=== PATIENT | male | born 1985 | race Caucasian/White ===

== ENCOUNTER 2019-06-12 18:15 | Emergency (ER) | payer OTHER, SELFPAY ==
[2019-06-12 18:25] VITALS: BP 147/86; PULSE 107; RESP 20; TEMP 36.3; O2SAT 99
--- NOTE | 2019-06-12 18:55 | ED.GENADULT ---
HPI - General Adult General Chief complaint: Nausea/Vomiting/Diarrhea Stated complaint: vomiting Time Seen by Provider: 06/12/19 18:20 Source: patient Mode of arrival: ambulatory Limitations: no limitations History of Present Illness HPI narrative: Patient is a 34-year-old male who presents to emergency department for evaluation of nausea vomiting diarrhea that is been present now for the last 6 days patient notes a few episodes of each per day with cramping of the abdomen has not taken anything for his symptoms has been able to tolerate fluid intake denies rectal bleeding or melena Related Data Home Medications Medication Instructions Recorded Confirmed topiramate PO BID 06/12/19 Allergies Allergy/AdvReac Type Severity Reaction Status Date / Time codeine Allergy Mild Unknown Verified 06/12/19 18:31 Review of Systems Review of Systems: All systems reviewed & are unremarkable except as noted in HPI and below PMFSH Past Medical History Medical History Anxiety Depression Hypercholesteremia PTSD (post-traumatic stress disorder) Surgical History Surgical History History of cholecystectomy Hx of eye surgery Social History Social History Smoking packs per day: 1 Smoking cigarettes per day: 20.0 Smoking status: Current every day smoker Gender identity (if verbalized by the patient): Male Exam Narrative: Exam Narrative: GENERAL: Well-appearing, well-nourished, and in no acute distress. HEAD: Normocephalic, atraumatic. EYES: PERRLA and EOMI. ENT: Nares clear, no rhinorrhea or epistaxis. Mucous membranes moist. CHEST: Clear to auscultation. No respiratory distress. No wheezes rales or rhonchi HEART: Regular rate and rhythm. No murmur heard. Normal peripheral pulses. ABDOMEN: Soft, nontender, nondistended EXTREMITIES: Normal range of motion. No edema. SKIN: Warm, dry, no rash. NEURO: No focal deficits. Alert and oriented x3. PSYCH: Normal mood and affect. Course Course Emergency Course: Patient in the room in no distress aware of case findings treatment plan and diagnosis agreeing to follow-up as directed Vital Signs Vital signs: Vital Signs Temperature 97.4 F L 06/12/19 18:25 Pulse Rate 107 H 06/12/19 18:25 Respiratory Rate 20 06/12/19 18:25 Blood Pressure 147/86 H 06/12/19 18:25 Pulse Oximetry 99 06/12/19 18:25 Temperature 97.4 F L 06/12/19 18:25 Pulse Rate 107 H 06/12/19 18:25 Respiratory Rate 20 06/12/19 18:25 Blood Pressure 147/86 H 06/12/19 18:25 Pulse Oximetry 99 06/12/19 18:25 Medical Decision Making MDM Narrative Medical decision making narrative: Patient in the room in no distress aware of case findings treatment plan and diagnosis. Patient provided with reasons to return. Patient agreeing to return. Patient afebrile nontoxic-appearing tolerating p.o. intake Vital Signs Vital Signs: Vital Signs Temperature 97.4 F L 06/12/19 18:25 Pulse Rate 107 H 06/12/19 18:25 Respiratory Rate 20 06/12/19 18:25 Blood Pressure 147/86 H 06/12/19 18:25 Pulse Oximetry 99 06/12/19 18:25 Temperature 97.4 F L 06/12/19 18:25 Pulse Rate 107 H 06/12/19 18:25 Respiratory Rate 20 06/12/19 18:25 Blood Pressure 147/86 H 06/12/19 18:25 Pulse Oximetry 99 06/12/19 18:25 Discharge Plan Discharge Clinical Impression: Nausea & vomiting Patient Disposition: Home, Self-Care Condition: Stable Instructions: Antibiotic Form, Acute Nausea and Vomiting (ED) Additional Instructions: Follow up with your primary care doctor tommorrow to set up for reevaluation in the next 7 days. Go to ER for worsening pain, nausea/vomitting, fever/chills, chest pain, shortness of breath, blood in stools or urine, etc. or any other concerns. Take any prescribed medications as directed
[2019-06-12] MEDS: SODIUM CHLORIDE 0.9% IV 1,000 ML 999 ML IV CONT (19:07)
[2019-06-12] MEDS: FAMOTIDINE 20 MG/2 ML VIAL IV PUSH (19:07)
[2019-06-12] MEDS: ONDANSETRON INJ 4 MG/2 ML VIAL IV PUSH (19:07)
[2019-06-12 19:18] LABS: Basophils Percent Auto 0.4 % (0.2-1.2); Eosinophils Absolute Auto 0.1 K/mm3 (0-0.3); Eosinophils Percent Auto 0.5 % (0-4.4); Hematocrit 44.8 % (42.0-52.0); Hemoglobin 15.7 g/dL (14.0-18.0); Immature Granulocyte Absolute 0.04 K/mm3 (0.00-0.031); Immature Granulocyte Percent A 0.4 % (0-0.5); Lymphocytes Absolute Auto 2.63 K/mm3 (0.9-3.2); Lymphocytes Percent Auto 27.3 % (18.3-44.2); Mean Corpuscular Volume 85.5 fl (80-100); Mean Platelet Volume 9.1 fl (7.4-10.4); Monocytes Absolute Auto 0.7 K/mm3 (0.1-0.6); Monocytes Percent Auto 7.3 % (2.6-8.5); Neutrophils Absolute Auto 6.2 K/mm3 (1.3-6.7); Neutrophils Percent Auto 64.1 % (45.5-73.1); Platelet Count Result 387 k/mm3 (150-375); Red Blood Count 5.24 M/mm3 (4.6-6.20); White Blood Count 9.6 K/mm3 (4.5-10.0)
[2019-06-12 19:32] LABS: Alanine Aminotransferase 57 U/L (4-50); Albumin Level 4.4 g/dL (3.5-5.1); Alkaline Phosphatase 87 U/L (38-126); Aspartate Amino Transferase 34 U/L (17-59); Bilirubin,Total 0.4 mg/dL (0.2-1.3); Blood Urea Nitrogen 12 mg/dL (9-20); Calcium 8.8 mg/dL (8.4-10.2); Carbon Dioxide 24 mmol/L (22-30); Chloride 108 mmol/L (98-107); Estimated CRCL calculation 149 ml/min; Estimated Glomerular Filt Rate > 60; Glucose 103 mg/dL (75-110); Lipase 30 U/L (23-300); Potassium 3.6 mmol/L (3.4-5.0); Sodium 142 mmol/L (137-145)
[2019-06-12 20:01] LABS: Add Urine Microscopic? YES; Appearance Urine Clear (Clear); Bacteria Urine Trace /hpf; Bilirubin Urine Negative (Negative); Blood Urine Negative (Negative); Color Urine Yellow (Yellow); Glucose Urine UA Negative (Negative); Ketones Urine 1+ mg/dL (Negative); Leukocyte Esterase Ur Negative LEU/UL (Negative); Mucus Urine Heavy /lpf; Nitrate Urine Negative (Negative); Protein Urine Negative (Negative); RBC Urine 0-2 /hpf (0-2); Specific Grav Ur 1.025 (1.001-1.035); WBC Urine 0-3 /hpf
[2019-06-12 20:12] LABS: Barbiturate Screen Urine Negative (Negative); Benzodiazepines Screen Urine Negative (Negative)
[2019-06-12 20:18] LABS: Amphetamine Screen Urine Negative (Negative); Cannabinoid Screen Urine Negative (Negative); Cocaine Screen Urine Negative (Negative); Methadone Screen Urine Negative (Negative); Opiate Screen Urine Negative (Negative); Phencyclidine Screen Urine Negative (Negative)
== END 2019-06-12 20:47 | disposition home or self-care (01) ==
PROVIDERS: Emergency Medicine Emergency Medical Services; Emergency Provider Emergency Medicine
DX: R11.2 Nausea with vomiting, unspecified (principal); F41.9 Anxiety disorder, unspecified; F32.9 Major depressive disorder, single episode, unspecified; E78.5 Hyperlipidemia, unspecified; F17.210 Nicotine dependence, cigarettes, uncomplicated
CPT/HCPCS: 36415; 80053; 80307; 81001; 83690; 85025; 96361; 96374; 96375; 99284; J2405; J7030

== ENCOUNTER 2019-12-17 08:40 | Outpatient (CLI) | payer OTHER, SELFPAY ==
--- NOTE | 2019-12-17 08:49 | ECHO_ITS ---
Patient Info Name: Ke Turner Age: 34 years : 1985 Gender: Male Ht: 69 in Wt: 250 lbs BSA: 2.40 m2 HR: 88 bpm BP: 132 / 85 mmHg Heart Rhythm: Sinus Rhythm Technical Quality: Good Exam Date: 12/17/2019 9:16 AM Exam Location: [facility] Patient Status: Outpatient Admit Date: 12/17/2019 Staff Ordering Physician: Char Mike MD [employer] Pilot: Derrick Ruggiero RDCS Attending Provider: Char Mike MD Referring Physician: Cee CHIRINOS; Exam Type: CA echo doppler color flow Study Info Indications R06.02 - Shortness of breath Complete two-dimensional, color flow and Doppler transthoracic echocardiogram is performed. Strain analysis performed. History/Risk Factors Shortness of breath; MAICOL, HTN, chest pain, palpitations. Summary 1. Complete two-dimensional, color flow and Doppler transthoracic echocardiogram is performed. 2. Left ventricular chamber dimension is normal. 3. Left ventricular systolic function is normal, estimated at 60-65%. 4. The left ventricular diastolic function is normal. 5. E/e' 5 is not elevated. 6. Global longitudinal strain is abnormal at -14.8%. 7. Right ventricular systolic function is mildly reduced based on TAPSE 1.5 cm. 8. There is trace tricuspid valve regurgitation. 9. No pulmonary hypertension, estimated pulmonary arterial systolic pressure is 29 mmHg. Left Ventricle E/e' 5 is not elevated. Global longitudinal strain is abnormal at -14.8%. Left ventricular chamber dimension is normal. Left ventricular systolic function is normal, estimated at 60-65%. The left ventricular diastolic function is normal. Right Ventricle Right ventricular systolic function is mildly reduced based on TAPSE 1.5 cm. Right ventricular chamber dimension is not well visualized. Left Atria Left atrial chamber dimension is normal. Right Atria Right atrial chamber dimension is normal. Aortic Valve The aortic valve is trileaflet. There is no aortic valve stenosis. There is no aortic valve regurgitation. Pulmonic Valve There is no pulmonic regurgitation. Mitral Valve There is no mitral valve stenosis. There is no mitral valve regurgitation. Tricuspid Valve There is trace tricuspid valve regurgitation. No pulmonary hypertension, estimated pulmonary arterial systolic pressure is 29 mmHg. Pericardium/Pleural There is no pericardial effusion. Inferior Vena Cava Normal inferior vena cava with >50% collapse upon inspiration consistent with normal right atrial pressure, 5 mmHg. Aorta The aortic root size at the sinus of Valsalva is normal. Left Ventricular Outflow Tract Name Value Normal LVOT 2D LVOT Diameter 2.1 cm LVOT Doppler LVOT Peak Gradient 3 mmHg LVOT Mean Gradient 2 mmHg LVOT VTI 16 cm LVOT VTI/AV VTI Ratio 0.9 LVOT Stroke Volume 56 ml LVOT CO 5.0 l/min LVOT CI 2.1 l/min/m2 Mitral Valve ---
== END 2019-12-17 08:41 | disposition home or self-care (01) ==
LOC: ANHCARD 08:43
PROVIDERS: PCP Nurse Practitioner; Visit Provider Internal Medicine Critical Care Medicine
DX: R06.02 Shortness of breath (principal)
CPT/HCPCS: 93306

== ENCOUNTER 2019-12-31 08:10 | Outpatient (CLI) | payer OTHER, SELFPAY ==
--- NOTE | 2020-02-03 14:17 | WPDHOMESLEEP ---
Sleep Study - Home Unattended Date of Study: 12/31/19 Ordering Provider: Char Mike MD Interpreting Physician: Char Mike MD Home Sleep Study Type: Apnea Link Air Height: 1.75 m Weight: 113.398 kg Body Mass Index: 36.9 Neck Circumference (inches): 16.9 [place]: 8 Reason for Sleep Study Hypersomnia Sleep History Ke Turner is a 34 yo man with loud snoring that bothers others. He has witnessed apneas at night. He has difficulties falling asleep and staying asleep. He constantly has trouble sleep with a cold. He does not wake up gasping for breath at night, does not sweat excessively at night or notices his heart pounding or beating irregularly at night. He occasionally falls asleep during the day, never involuntarily or while driving. He does not fall asleep during physical effort. He does not have loss of muscle tone was strong emotion and does not have daytime difficulties due to excessive sleepiness. Does not feel paralyzed on waking or falling asleep. He denies vivid dreamlike scenes upon awakening or falling asleep. He has never for a to go to sleep. He constantly has nightmares consulate remember his dreams and has racing thoughts at night. He occasionally feels sad or depressed. He constantly has anxiety. He denies muscular tension. He occasionally notices parts of his body jerking, occasionally kicks at night, occasionally has crawling and aching feelings in his legs and leg pain at night. He does not have morning jaw pain, rarely grinds his teeth during sleep. He is not bothered by pain during the day and is not awakened by pain at night. He occasionally wakes up feeling stiff in the morning. He does not have sore achy muscles are pain in the neck and spine in the morning. He has fatigue memory problems insomnia and concentration difficulties. Normal bedtime is 11:00 p.m. taking medications to help him fall asleep. He does not take medications he would stay awake until 2 in the morning. It takes him about 40 minutes to fall asleep. If he wakes at night he watches television, looks at his phone in place video games. He wakes up in the morning at 10:00 a.m. He estimates that he gets 8-10 hours of sleep per night. Weekends are about the same. He does not take naps in the afternoon or evening. Naps are not refreshing. He is drowsy in the morning for 1 hour or longer. Habits: Tobacco 2 packs a day. Caffeine 2 servings a day. No mention of alcohol or recreational drugs. [facility] Past Medical History Medical History (Updated 02/03/20 @ 14:56 by Char Mike MD) Amblyopia Anxiety Depression Hypercholesteremia Hypersomnia Poor sleep hygiene PTSD (post-traumatic stress disorder) Shortness of breath on exertion Tobacco abuse Surgical History Surgical History History of cholecystectomy Hx of eye surgery S/P tonsillectomy right tonsil for abscess, age 8 Social History Social History Smoking packs per day: 1.5 Smoking cigarettes per day: 30.0 Years smoked: 14 Smoking pack-years: 21.00 Smoking status: Current every day smoker Alcohol intake: never Substance use: never Additional living arrangements comments: and 2 kids Additional occupation/education comments: awaiting disability; has a PTSD support dog Gender identity (if verbalized by the patient): Male Medications Home Medications Medication Instructions Recorded Confirmed Type ondansetron 4 mg PO Q8H #10 tablet 06/12/19 01/30/20 Rx fluoxetine 40 mg capsule 40 mg PO DAILY 11/19/19 01/30/20 History gabapentin 300 mg capsule 300 mg PO TID 11/19/19 01/30/20 History propranolol 20 mg tablet 20 mg PO TID tablet 11/19/19 01/30/20 History quetiapine 200 mg tablet 200 mg PO ONCE tablet 11/19/19 01/30/20 History Sleep Procedure This test was performed using 4 channel monitoring including respiratory
[2020-02-03 14:56] VITALS: BMI 36.9
== END 2019-12-31 08:11 | disposition home or self-care (01) ==
LOC: ANHCSM 08:11
PROVIDERS: PCP Nurse Practitioner; Visit Provider Internal Medicine Critical Care Medicine
DX: G47.10 Hypersomnia, unspecified (principal)
CPT/HCPCS: 95806

== ENCOUNTER 2020-02-19 07:51 | Outpatient (CLI) | payer OTHER, SELFPAY | END 2020-02-19 07:52 | disposition home or self-care (01) | LOC: ANHAUDIO 07:52 | PROVIDERS: PCP Nurse Practitioner; Visit Provider Otolaryngology | DX: H93.13 Tinnitus, bilateral (principal); H91.90 Unspecified hearing loss, unspecified ear | CPT/HCPCS: 92552; 92556; 92567 ==

== ENCOUNTER 2020-05-05 01:16 | Outpatient (CLI) | payer OTHER, SELFPAY ==
[2020-05-05 19:19] LABS: SARS-CoV-2 RNA PCR Negative
== END 2020-05-05 01:17 | disposition home or self-care (01) ==
LOC: ANHCOVIDDT 01:16
PROVIDERS: Family Provider Family Medicine; PCP Nurse Practitioner; Visit Provider Internal Medicine Critical Care Medicine
DX: Z01.812 Encounter for preprocedural laboratory examination (principal); Z20.822 Contact with and (suspected) exposure to COVID-19
CPT/HCPCS: C9803; U0003; U0005

== ENCOUNTER 2020-05-07 10:05 | Outpatient (CLI) | payer OTHER, SELFPAY ==
--- NOTE | 2020-05-29 19:16 | WPDSLEEPSTUD ---
Sleep Study Date of Study: 05/07/20 Ordering Provider: Ayaan Perrin APRN Interpreting Physician: Char Mike MD Sleep Study Type: CPAP Titration Height: 1.75 m Weight: 120.656 kg Body Mass Index: 39.2 Neck Circumference: 48.26 cm [place]: 8 Reason for Sleep Study Home Sleep Test December 31, 2019 with an AHI of 14, desaturation to 78%, 100 minutes spent below 88%; presents for CPAP titration Sleep History Ke Turner is a 34 yo man with loud snoring that bothers others. He has witnessed apneas at night. He has difficulties falling asleep and staying asleep. He constantly has trouble sleep with a cold. He does not wake up gasping for breath at night, does not sweat excessively at night or notices his heart pounding or beating irregularly at night. He occasionally falls asleep during the day, never involuntarily or while driving. He does not fall asleep during physical effort. He does not have loss of muscle tone was strong emotion and does not have daytime difficulties due to excessive sleepiness. Does not feel paralyzed on waking or falling asleep. He denies vivid dreamlike scenes upon awakening or falling asleep. He is never afraid to go to sleep. He constantly has nightmares, constantly remembers his dreams and has racing thoughts at night. He occasionally feels sad or depressed. He constantly has anxiety. He denies muscular tension. He occasionally notices parts of his body jerking, occasionally kicks at night, occasionally has crawling and aching feelings in his legs and leg pain at night. He does not have morning jaw pain, and rarely grinds his teeth during sleep. He is not bothered by pain during the day and is not awakened by pain at night. He occasionally wakes up feeling stiff in the morning. He does not have sore achy muscles are pain in the neck and spine in the morning. He has fatigue memory problems insomnia and concentration difficulties. Normal bedtime is 11:00 p.m. taking medications to help him fall asleep. Without these, he says thaT he would stay awake until 2:00 a.m. It takes him about 40 minutes to fall asleep. If he wakes at night, he watches television, looks at his phone, and he may play video games. He wakes up in the morning at 10:00 a.m. He estimates that he gets 8-10 hours of sleep per night. Weekends are about the same. He does not take naps in the afternoon or evening. Naps are not refreshing. He is drowsy in the morning for 1 hour or longer. Habits: Tobacco 2 packs a day. Caffeine 2 servings a day. No mention of alcohol or recreational drugs. [facility] Past Medical History Medical History Amblyopia Anxiety Depression Hypercholesteremia Hypersomnia Poor sleep hygiene PTSD (post-traumatic stress disorder) Shortness of breath on exertion Tobacco abuse Surgical History Surgical History History of cholecystectomy Hx of eye surgery S/P tonsillectomy right tonsil for abscess, age 8 Social History Social History Smoking packs per day: 1.5 Smoking cigarettes per day: 30.0 Years smoked: 14 Smoking pack-years: 21.00 Smoking status: Current every day smoker Alcohol intake: never Substance use: never Additional living arrangements comments: and 2 kids Additional occupation/education comments: awaiting disability; has a PTSD support dog Gender identity (if verbalized by the patient): Male Medications Home Medications Medication Instructions Recorded Confirmed Type ondansetron 4 mg PO Q8H #10 tablet 06/12/19 01/30/20 Rx fluoxetine 40 mg capsule 40 mg PO DAILY 11/19/19 01/30/20 History gabapentin 300 mg capsule 300 mg PO TID 11/19/19 01/30/20 History propranolol 20 mg tablet 20 mg PO TID tablet 11/19/19 01/30/20 History quetiapine 200 mg tablet 200 mg PO ONCE tablet 11/19/19 01/30/20
[2020-06-03 18:28] VITALS: BMI 39.2
== END 2020-05-07 10:06 | disposition home or self-care (01) ==
LOC: ANHCSM 10:06
PROVIDERS: Family Provider Family Medicine; PCP Nurse Practitioner; Visit Provider Nurse Practitioner Family
DX: G47.33 Obstructive sleep apnea (adult) (pediatric) (principal)
CPT/HCPCS: 95811

== ENCOUNTER 2020-10-01 20:40 | Emergency (ER) | payer MEDICARE, MEDICAID, SELFPAY ==
[2020-10-01 20:44] VITALS: BP 142/103; PULSE 109; RESP 17; TEMP 37.4; O2SAT 99
--- NOTE | 2020-10-01 21:01 | ED.GENADULT ---
HPI - General Adult General Chief complaint: Skin/Abscess/Foreign Body Stated complaint: Burn to right hand Time Seen by Provider: 10/01/20 21:00 Source: patient Mode of arrival: ambulatory Limitations: no limitations History of Present Illness HPI narrative: Patient is here for evaluation of blisters resulting from grease splashing on the back of his hand. There are 2 raised blisters and 3 reddened areas. He applied some burn cream at the time of the incident. Denies any pain Onset (ago): hour(s) Location: upper extremity Radiation: non-radiation Severity: mild Quality: other (tingling) Pain Consistency: constant Treatments prior to arrival: none Related Data Home Medications Medication Instructions Recorded Confirmed fluoxetine 40 mg capsule 40 mg PO DAILY 11/19/19 09/08/20 gabapentin 300 mg capsule 300 mg PO TID 11/19/19 09/08/20 propranolol 20 mg tablet 20 mg PO TID tablet 11/19/19 09/08/20 quetiapine 200 mg tablet 200 mg PO ONCE tablet 11/19/19 09/08/20 prazosin 2 mg capsule 2 mg PO QHS 09/08/20 09/08/20 topiramate 50 mg tablet 50 mg PO BID 09/08/20 09/08/20 Allergies Allergy/AdvReac Type Severity Reaction Status Date / Time codeine Allergy Mild Unknown Verified 10/01/20 20:41 Review of Systems Review of Systems: All systems reviewed & are unremarkable except as noted in HPI and below PMFSH Past Medical History Medical History Amblyopia Anxiety Depression Hypercholesteremia Hypersomnia Poor sleep hygiene PTSD (post-traumatic stress disorder) Shortness of breath on exertion Tobacco abuse Surgical History Surgical History History of cholecystectomy Hx of eye surgery S/P tonsillectomy right tonsil for abscess, age 8 Social History Social History Smoking packs per day: 1.5 Smoking cigarettes per day: 30.0 Years smoked: 14 Smoking pack-years: 21.00 Smoking status: Current every day smoker Alcohol intake: never Substance use: never Additional living arrangements comments: and 2 kids Additional occupation/education comments: awaiting disability; has a PTSD support dog Gender identity (if verbalized by the patient): Male Exam Const: General: healthy appearing, no acute distress and alert HENMT: Head: normal to inspection Eyes: Pupils: Equal, round and reactive pupils present Resp: Effort & Inspection: normal respiratory effort Extrem: Other: 2 raised blisters, ~ 1.5 cm over thenar aspect of right hand. 1 flattened blister and 2 small splatter barber. Course Course Emergency Course: Continues blisters very superficial, filled with clear fluid. Recommend Tylenol or ibuprofen for discomfort. Bacitracin to the 1 ruptured blister site and to the other 2 should they rupture. Otherwise keep the skin intact. Follow-up with your primary care physician if they do not resolve after the weekend. Vital Signs Vital signs: Vital Signs Temperature 37.4 C 10/01/20 20:44 Pulse Rate 109 H 10/01/20 20:44 Respiratory Rate 17 10/01/20 20:44 Blood Pressure 142/103 H 10/01/20 20:44 Pulse Oximetry 99 10/01/20 20:44 Temperature 37.4 C 10/01/20 20:44 Pulse Rate 109 H 10/01/20 20:44 Respiratory Rate 17 10/01/20 20:44 Blood Pressure 142/103 H 10/01/20 20:44 Pulse Oximetry 99 10/01/20 20:44 Medical Decision Making Vital Signs Vital Signs: Vital Signs Temperature 37.4 C 10/01/20 20:44 Pulse Rate 109 H 10/01/20 20:44 Respiratory Rate 17 10/01/20 20:44 Blood Pressure 142/103 H 10/01/20 20:44 Pulse Oximetry 99 10/01/20 20:44 Temperature 37.4 C 10/01/20 20:44 Pulse Rate 109 H 10/01/20 20:44 Respiratory Rate 17 10/01/20 20:44 Blood Pressure 142/103 H 10/01/20 20:44 Pulse Oximetry 99 10/01/20 20:44 Discharge Plan Discharge Clinical Impress
== END 2020-10-01 21:29 | disposition home or self-care (01) ==
PROVIDERS: Emergency Provider Emergency Medicine; PCP Nurse Practitioner
DX: T23.261A Burn of second degree of back of right hand, initial encounter (principal); T31.0 Burns involving less than 10% of body surface; E78.00 Pure hypercholesterolemia, unspecified; F43.10 Post-traumatic stress disorder, unspecified; F41.9 Anxiety disorder, unspecified; F32.9 Major depressive disorder, single episode, unspecified; F17.210 Nicotine dependence, cigarettes, uncomplicated; X10.2XXA Contact with fats and cooking oils, initial encounter
CPT/HCPCS: 99282

== ENCOUNTER 2023-01-19 12:49 | Emergency (ER) | payer MEDICARE, MEDICAID, SELFPAY ==
--- NOTE | ~2023-01-19 | XR_ITS ---
EXAMINATION: XR chest 1V portable INDICATION: Cough and shortness of breath TECHNIQUE: Portable AP chest at 1517 hours COMPARISON: 11/18/2016 FINDINGS: The lungs are free of acute opacities. No pleural effusion or pneumothorax. The cardiomedia stinal silhouette is normal. IMPRESSION: 1. No acute cardiopulmonary abnormality. Reviewed, dictated and finalized at location F.
[2023-01-19 13:24] VITALS: BP 159/89; PULSE 101; RESP 16; TEMP 36.4; O2SAT 98
[2023-01-19 14:19] LABS: SARS-CoV-2 RNA PCR Negative (Negative)
--- NOTE | 2023-01-19 15:13 | ED.GENADULT ---
HPI - General Adult General Chief complaint: Upper Respiratory Infection Stated complaint: exposed to COVID, c/o h/a, fatigue Time Seen by Provider: 01/19/23 14:48 History of Present Illness HPI narrative: 37-year-old male presented the emergency department for evaluation of persistent cough and congestion. Patient states that he and his family had COVID a few weeks ago. Patient states he felt that he was improving and now he has worsening cough congestion. Related Data Home Medications Medication Instructions Recorded Confirmed fluoxetine 40 mg capsule 40 mg PO DAILY 11/19/19 07/27/22 propranolol 20 mg tablet 20 mg PO TID 11/19/19 07/27/22 prazosin 2 mg capsule 2 mg PO QHS 09/08/20 07/27/22 quetiapine 200 mg tablet 50 mg PO ONCE 02/15/22 07/27/22 gabapentin 300 mg capsule 600 mg PO TID 04/12/22 07/27/22 Allergies Allergy/AdvReac Type Severity Reaction Status Date / Time codeine Allergy Mild Unknown Verified 01/19/23 14:49 Review of Systems Review of Systems: All systems reviewed & are unremarkable except as noted in HPI and below PMFSH Past Medical History Medical History Amblyopia Anxiety Depression Hypercholesteremia Hypersomnia Poor sleep hygiene PTSD (post-traumatic stress disorder) Shortness of breath on exertion Tobacco abuse Surgical History Surgical History History of cholecystectomy Hx of eye surgery S/P tonsillectomy right tonsil for abscess, age 8 Social History Social History Smoking packs per day: 2 Smoking cigarettes per day: 40.0 Years smoked: 16 Smoking pack-years: 32.00 Smoking status: Current every day smoker Tobacco type: cigarettes Second hand tobacco smoke exposure: Yes Alcohol intake: never Substance use: never Living arrangements: with family Additional living arrangements comments: and 2 kids Occupation/Education: unemployed Additional occupation/education comments: awaiting disability; has a PTSD support dog Gender identity (if verbalized by the patient): Male Exam Narrative: APPEARANCE: Well appearing, no pain, no distress, well-nourished. HEAD: normocephalic, atraumatic. EYES: PERRLA/EOMI, conjunctivae clear. NOSE: Normal no drainage EARS:TMS clear with good light reflex. THROAT: Pharynx clear, no exudate. NECK: Supple. No adenopathy, no masses. RESPIRATORY: Airway patent, respirations nonlabored. Clear to auscultation bilaterally, no rales, rhonchi, wheezing. CARDIOVASCULAR: Regular rate and rhythm without murmurs rubs or gallops. ABDOMINAL: Soft, nontender, nondistended, normal bowel sounds MUSCULOSKELETAL: Moves all extremities. Strength/ROM intact, No edema, No calf tenderness. NEURO: Alert. Cranial nerves II through XII intact. Grossly intact SKIN: Warm, dry. Normal Color Course Course Emergency Course: 37-year-old male with recent COVID presented to the ED for evaluation of worsening cough. Patient was COVID-negative in the ED. Patient is being started antibiotics for concern for underlying superinfection. Chest x-ray shows no acute cardiopulmonary abnormality. Vital Signs Vital signs: Vital Signs Temperature 97.5 F L 01/19/23 13:24 Pulse Rate 101 H 01/19/23 13:24 Respiratory Rate 16 01/19/23 13:24 Blood Pressure 159/89 H 01/19/23 13:24 Pulse Oximetry 98 01/19/23 13:24 Oxygen Delivery Room Air 01/19/23 13:24 Temperature 97.5 F L 01/19/23 13:24 Pulse Rate 95 01/19/23 15:30 Respiratory Rate 18 01/19/23 15:30 Blood Pressure 159/89 H 01/19/23 13:24 Pulse Oximetry 98 01/19/23 13:24 Oxygen Delivery Room Air 01/19/23 14:52 Medical Decision Making Differential Diagnosis Differential Diagnosis: Pneumonia, pneumothorax, COVID Vital Signs Vital Signs: Vital Signs Temperature 97.5 F L 01/19/23
[2023-01-19 15:20] VITALS: PULSE 99; RESP 18
[2023-01-19] MEDS: ALBUTEROL SULFATE NEB 2.5 MG/3 ML INH INHALATION (15:21)
[2023-01-19 15:30] VITALS: PULSE 95; RESP 18
== END 2023-01-19 16:03 | disposition home or self-care (01) ==
PROVIDERS: Emergency Provider Emergency Medicine; PCP Nurse Practitioner
DX: R05.9 Cough, unspecified (principal); Z20.822 Contact with and (suspected) exposure to COVID-19; E78.00 Pure hypercholesterolemia, unspecified; F41.9 Anxiety disorder, unspecified; F32.A Depression, unspecified; F43.10 Post-traumatic stress disorder, unspecified; F17.210 Nicotine dependence, cigarettes, uncomplicated; Z90.49 Acquired absence of other specified parts of digestive tract
CPT/HCPCS: 71045; 87635; 94640; 99283

== ENCOUNTER 2025-03-20 10:41 | Emergency (ER) | payer MEDICARE, SELFPAY ==
--- OUTSIDE RECORDS SUMMARY | 2023-10-11 14:00 | XMS_ITS ---
Author Organization [facility] Address [address] [place] [address] Phone [phone] Care Team Providers Care Piecer Name Role Phone Darshan Lujan APRN Primary Care Provider [phone] [facility] Unav ailable Unavailable Emely Waller Unavailable [phone] REASON FOR VISIT 2 Week F/U Social History Sex Observation Social History Observation Description Sex Observation Male Sexual Orientation Social History Observation Description Sexual Orientation Straight or heterose xual Gender Identity Social History Observation Description Gender Identity Male Encounters Date Time Type Facility Location Provider Diagnosis 10/11/2023 02:00 PM Office Visit [address] [id number] Emely Waller Plan Of Treatment No Information Medical (General) History Medical History History ICD Code obesity rotator cuff injury rt anxiety PTSD depression tobacco cessation Surgical History Surgery Date(Month/Year) Amblyopia repair Shoulder 03/25 Hospitalization History Reason Date(Month/Year) [facility] 10/2023 Progress Notes * Mina TURNEROB:[birth year] (39 yo M)Acc No.[id number]:10/11/2023 UNLOCKED PROGRESS NOTE Patient: Ke CANDELARIA Provider: Bob Waller, MSN, WEASAND TRIMMER-BC, PMHNP-BC :1985 A ge:38 Y S ex:Male Date:10/11/2023 Address:[address] [place], [place] [id number] Pcp:Darshan Lujan Subjective: * Chief Complaints: * 1 . 2 Week F/U. * Screening: * * Medical History: Objective: * Vitals: Assessment: Plan: * Treatment: * * Electronic signature of Emely Waller , [id number] on 03/20/2025 at 11:40 AM [employer]SEMBLER [employer]OR Sign off status: Pending * Provider: CHRISTIANA Forbes, WEASAND TRIMMER-BC, PMHNP-BC Date: 0 10/11/2023 Generated for Christopher seo/Brittany/eTransmitting on: 1 05/21/2024 11:40 AM [employer]SEM[employer]
--- OUTSIDE RECORDS SUMMARY | 2024-03-19 13:00 | XMS_ITS ---
Author Organization [facility] Address [address] [place] [address] Phone [phone] Care Team Providers Care Digital Sales Planner Name Role Phone Darshan Lujan APRN Primary Care Provider [phone] [facility] Unav ailable Unavailable REASON FOR VISIT still having problems from er f/u Social History Sex Observation Social History Observation Description Sex Observation Male Sexual Orientation Social History Observation Description Sexual Orientation Straight or heterose xual Gender Identity Social History Observation Description Gender Identity Male Encounters Date Time Type Facility Location Provider Diagnosis 03/19/2024 01:00 PM Office Visit [address] [place] [address] Darshan Lujan Plan Of Treatment No Information Medical (General) History Medical History History ICD Code obesity rotator cuff injury rt anxiety PTSD depression tobacco cessation Surgical History Surgery Date(Month/Year) Amblyopia repair Shoulder 03/25 Hospitalization History Reason Date(Month/Year) [facility] 10/2023 Progress Notes * Mina TURNEROB:[birth year] (39 yo M)Acc No.[id number]:03/19/2024 UNLOCKED PROGRESS NOTE Progress Notes Patient: Ke CANDELARIA Provider: CHRISTIANA Fisher, MIGUELITOSYLVIA- :1985 A ge:38 Y S ex:Male Date:03/19/2024 Address:[address] [place], [place] [id number] Subjective: * Chief Complaints: * 1 . Still having problems from er f/u. * Screening: * * Medical History: Objective: * Vitals: Assessment: Plan: * Treatment: * * Electronic signature of Schuyler Lujan , HORSES OR MULES TEAMSTER, [phone] on 03/20/2025 at 11:41 AM SLITTER CUT OFF OPERATOR Sign off status: Pending * Provider: [facility]STIANA Fisher, [facility] Date: 1 05/20/2023 Generated for Printing/Faxing/eTransmitting on: 05/21/2024 11:41 AM SLITTER CUT OFF OPERATOR
--- NOTE | ~2025-03-20 | XR_ITS ---
EXAMINATION: XR tibia fibula RT 2V DATE: 03/20/2025 11:20 INDICATION: Injury TECHNIQUE: Right leg x-ray were obtained. COMPARISON: None. IMPRESSION: 1. No displaced fracture lucency, subluxation or dislocation. 2. No radiopaque foreign body seen. Reviewed, dictated and finalized at location A. ON AND TIME STUDY TEACHER
--- NOTE | ~2025-03-20 | XR_ITS ---
Examination: XR ankle RT min 3V, XR foot RT min 3V Clinical History: right ankle, pain, fall Comparison: None Technique: 4 views right ankle, 4 views right foot Findings/impression: Right ankle: 1. Tiny chip avulsion fracture along medial malleolus. 2. Otherwise no acute abnormality right ankle. Right foot: 1. No fracture or dislocation. Reviewed, dictated and finalized at location R. UELS TECHNOLOGY MANAGER
[2025-03-20 10:45] VITALS: BP 131/84; PULSE 99; RESP 17; TEMP 36.7; O2SAT 97
--- NOTE | 2025-03-20 10:58 | ED.LOWEXIN ---
HPI - Extremity Injury (Lower) General Chief Complaint: Extremity Injury, Lower Stated Complaint: ankle injury Time Seen by Provider: 03/20/25 10:42 Source: patient Mode of arrival: wheelchair Limitations: no limitations History of Present Illness HPI Narrative: This is a 39 year old male that presents to the ER for right ankle injury. Reports he fell off of his porch and twisted his ankle. Reports swelling and pain to the area. The pain radiates up into his leg and down into his foot. Denies decreased ROM or numbness. Related Data Home Medications ?Medication ?Instructions ?Recorded ?Confirmed ?Last Taken ?Type fluoxetine 40 mg capsule 40 mg PO DAILY 11/19/19 07/27/22 Unknown History propranolol 20 mg tablet 20 mg PO TID 11/19/19 07/27/22 Unknown History prazosin 2 mg capsule 2 mg PO QHS 09/08/20 07/27/22 Unknown History quetiapine 200 mg tablet 50 mg PO ONCE 02/15/22 07/27/22 Unknown History gabapentin 300 mg capsule 600 mg PO TID 04/12/22 07/27/22 Unknown History Allergies Allergy/AdvReac Type Severity Reaction Status Date / Time codeine Allergy Mild Unknown Verified 03/20/25 11:21 Review of Systems Review of Systems: All systems reviewed & are unremarkable except as noted in HPI and below PMFSH Past Medical History Medical History Amblyopia Anxiety Depression Hypercholesteremia Hypersomnia Poor sleep hygiene PTSD (post-traumatic stress disorder) Shortness of breath on exertion Tobacco abuse Surgical History Surgical History History of cholecystectomy Hx of eye surgery S/P tonsillectomy right tonsil for abscess, age 8 Social History Social History Smoking packs per day: 2 Smoking cigarettes per day: 40.0 Years smoked: 16 Smoking pack-years: 32.00 Smoking status: Current every day smoker Tobacco type: cigarettes Second hand tobacco smoke exposure: Yes Alcohol intake: never Substance use: never Living arrangements: with family Additional living arrangements comments: and 2 kids Occupation/Education: unemployed Additional occupation/education comments: awaiting disability; has a PTSD support dog Gender identity (if verbalized by the patient): Male Exam Narrative: GENERAL: Well-appearing, well-nourished, and in no acute distress. HEAD: Normocephalic, atraumatic. EYES: EOMI. EXTREMITIES: Normal range of motion. Mild edema about the right lateral malleoli. Normal DP pulse. Normal sensation SKIN: Warm, dry, no rash. NEURO: No focal deficits. Alert and oriented x3. PSYCH: Normal mood and affect Course Vital Signs Vital signs: Vital Signs Temperature 98.1 F 03/20/25 10:45 Pulse Rate 99 03/20/25 10:45 Respiratory Rate 17 03/20/25 10:45 Blood Pressure 131/84 03/20/25 10:45 Pulse Oximetry 97 03/20/25 10:45 Oxygen Delivery Room Air 03/20/25 10:45 Temperature 98.1 F 03/20/25 10:45 Pulse Rate 99 03/20/25 10:45 Respiratory Rate 17 03/20/25 10:45 Blood Pressure 131/84 03/20/25 10:45 Pulse Oximetry 97 03/20/25 10:45 Oxygen Delivery Room Air 03/20/25 10:45 Procedures Orthopedic Splinting/Casting Injury #1: Splinting/Casting Date: 03/20/25 Splinting/Casting Time: 11:57 Side: right Lower Extremity Injury Location: ankle Lower Extremity Immobilizer: Jake wrap Pre-Procedure Neuro Vascular Exam: normal Post-Procedure Neuro Vascular Exam: normal Other Orthopedic Equipment: crutches MDM MDM Narrative Medical decision making narrative: Patient presents emergency department after a fall today with right ankle pain. He is neurovascularly intact. X-ray without acute osseous abnormalities. Patient placed in Jake wrap and given crutches. Instructed on further care of ankle sprain. Follow-up with PCP Differential Diagnosis Differential Diagnosis: Ankle sprain, ankle fracture Imaging Data Radiologist's impression: ITS Impressions Tibia/Fibula X-Ray 03/20/25 11:22 IMPRESSION: 1. No displaced fracture lucency, subluxation or dislocation. 2. No radiopaque foreign body seen. Critical Care Time Critical Care Time Critical Care Time: No Discharge Plan Discharge Clinical Impression: Ankle sprain Qualifiers: Encounter type: initial encounter Involved ligament of ankle: unspecified ligament Laterality: right Qualified Code(s): S93.401A - Sprain of unspecified ligament of right ankle, initial encounter Patient Disposition: Home Condition: Stable Instructions: Ankle Sprain (ED) Additional Instructions: Return to the ER if you experience fever, redness and swelling of your extremity, numbness or any other symptoms that are concerning to you Wear JAKE wrap and use crutches. No weight on the affected leg until able to bear weight without pain. Ice and elevate extremity. Pain medication as needed and directed. Follow up with your doctor for further care. Patient Language: Hungarian Prescriptions: No Action prazosin 2 mg capsule 2 mg PO QHS propranolol 20 mg tablet 20 mg PO TID fluoxetine 40 mg capsule 40 mg PO DAILY quetiapine 200 mg tablet 50 mg PO ONCE Patient Comments: 1 at bedtime gabapentin 300 mg capsule 600 mg PO TID albuterol sulfate 90 mcg/actuation HFA aerosol inhaler 1 inh inhalation QID PRN (Reason: shortness of breath or wheezing) Qty: 6.7 0RF azithromycin 250 mg tablet See Rx Instructions .ROUTE .COMPLEX Qty: 6 0RF Rx Instructions: For 250 mg dose pack: take 500 mg today (day 1), then 250 mg for 4 days (days 2-5) amoxicillin-pot clavulanate 875-125 mg tablet 1 tablet PO Q12H Qty: 14 0RF Follow-up/Referrals: Tai,Darshan Sevilla APRN [Primary Care Provider, Unknown]
[2025-03-20] MEDS: IBUPROFEN 600 MG TABLET PO (11:21)
--- OUTSIDE RECORDS SUMMARY | 2025-03-20 11:41 | XMS_ITS | Clinical Summary ---
Author Organization [facility] Address [address], [address] [address] Phone Care Team Providers Care Hogshead Salvage Name Role Phone Dimple Penn APRN, SELINA Primary Care P rovider Allergies Active Allergy Reactions Criticality Noted Date Comments Codeine Swelling High 03/25/2015 Medications [place]-3 Fatty Acids (FISH OIL) 1200 MG Capsule Take 1,200 mg by mouth daily. Active sildenafil citrate (VIAGRA) 50 MG Tablet Take 1 Tab by mouth as needed for Erectile Dysfunction. 10 Tab 0 6 Active Additional Information Patient not taking.Reported on 04/06/2018 ergocalciferol (VITAMIN D) 63101 UNIT Capsule Take 50,000 Units by mouth once a week. 0 6 Active amphetamine-dex troamphetamine (ADDERALL XR) 10 MG CAPSULE SR 24 HR Take 1 Cap by mouth every morning. 30 Cap 0 6 Active Additional Information Patient not taking.Reported on 04/06/2018 zolpidem (AMBIEN) 5 MG Tablet Take 1 Tab by mouth nightly as needed. 15 Tab 0 6 Active Additional Information Patient not taking.Reported on 04/06/2018 PARoxetine (PAXIL) 40 MG Tablet TAKE ONE TABLET BY MOUTH DAILY 30 Tab 0 6 Active Additional Information Patient not taking.Reported on 04/06/2018 traZODone (DESYREL) 50 MG Tablet Take 1 Tab by mouth nightly as needed. 1 6 Active sertraline (ZOLOFT) 25 MG Tablet Take 50 mg by mouth daily. Active CloNIDine (CATAPRES TTS) 0.1 MG/24HR PATCH WEEKLY 1 Patch by Transdermal route every 7 days. Active prazosin (MINIPRESS) 2 MG Capsule Take 2 mg by mouth nightly. Active cloNIDine (CATAPRES) 0.2 MG Tablet Take 0.1 mg by mouth nightly. Active lamoTRIgine (LAMICTAL) 100 MG Tablet Take 50 mg by mouth 2 times daily. Active Active Problems Problem Noted Date Diagnosed Date Attention deficit hyperactivity disorder (ADHD) 06/17/2015 Vitamin D deficiency 04/19/2015 Erectile dysfunction 04/07/2015 Dyslipidemia 04/07/2015 Anger 04/07/2015 Anxiety 04/07/2015 Family History Medical History Relation Name Comments Diabetes Brother Celiac Disease Father Coronary Artery Disease Father Heart Attack Father Hypertension Father Cancer Maternal Grandfather leukemi a Heart Disease Maternal Grandfather Cancer Maternal Grandmother colon Heart Disease Maternal Grandmother Heart Attack Mother Stroke Paternal Aunt Heart Disease Paternal Grandmother Relation Name Status Comments Brother Father Alive Maternal Grandfather Maternal Grandmother Mother Alive born with kinde y issues Paternal Aunt Paternal Grandmother Social History Tobacco Use Types Packs/Day Years Used Date Smoking Tobacco: Former Cigarettes 2 15 1 04/09/2001 - 02/07/2017 Smokeless Tobacco: Former Chew Quit: 02/07/2017 Tobacco Cessation:Ready to Q uit: No; Counseling Given: Yes Comments:vaps Alcohol Use Standard Drinks/Week Comments No 0 (1 standard drink = 0.6 oz pur e alcohol) Sex and Gender Information Value Date Recorded Sex Assigned at Not on file Legal Sex Male 11:39 PM CDT Gender Identity Not on file Sexual Orientation Not on file 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 Not on file Not on file Last Filed Vital Signs Vital Sign Reading Time Taken Comments Blood Pressure 124/84 05/21/2018 9:30 AM NATURAL REMEDY CONSULTANT Pulse 82 05/21/2018 7:38 AM NATURAL REMEDY CONSULTANT Temperature 36 C (96.8 F) 05/21/2018 9:30 AM NATURAL REMEDY CONSULTANT Respiratory Rate 22 05/21/2018 9:30 AM NATURAL REMEDY CONSULTANT Oxygen Saturation 97% 05/21/2018 9:30 AM NATURAL REMEDY CONSULTANT Inhaled Oxygen Concentration - - Weight 112.9 kg (249 lb) 05/02/2018 9:00 AM NATURAL REMEDY CONSULTANT Height 176.5 cm (5' 9.5) 05/02/2018 9:00 AM NATURAL REMEDY CONSULTANT Body Mass Index 36.24 05/02/2018 9:00 AM NATURAL REMEDY CONSULTANT Plan of Treatment Health Maintenance Due Date Last Done Comments Hepatitis C Virus (HCV) Screening 1985 TdaP Immunization 1985 Varicella Immunization (1 of 2 - 13+ 2-dose series) 06/08/2000 Hepatitis B Immunization (1 of 3 - 19+ 3-dose series) 06/08/2006 Influenza Immunization (#1) 2024 SARS-COV-2 Immunization (3 - 2024- season) 2024 07/28/2020, 07/07/2020 Respiratory Syncytial Virus (RSV) Immunization (Adult) (1 - 1-dose 75+ series) 06/08/2062 Human Papillomavirus (HPV) Immunization (No Doses Required) Completed Meningococcal Immunization (ACWY) Aged Out No longer eligible b ased on patient's age to complete this topic Pneumococcal Immunization Combined Aged Out No longer eligible b ased on patient's age to complete this topic Rotavirus Immunization Aged Out No lo nger eligible based on patient's age to complete this topic Insurance MEDICAID [employer] Care Teams Hogshead Salvage Relationship Specialty Start Date End Date Dimple Penn APRN, SELINA [address] [place] [address] PCP - General Advanced Practice Nurse 04/17/18
--- OUTSIDE RECORDS SUMMARY | 2025-03-20 11:41 | XMS_ITS | Clinical Summary ---
Author Organization [facility] [employer] Address [address] [facility] [place] [address] Care Team Providers Care Parts Delivery Driver Name Role Phone Unavailable Primary Care Provider Unavailabl e Source Comments [facility],non-owned Affiliates and Associated Physician Practices is amultiple site organization consisting of ambulatory clinics and hospital sitesin [place], [place], [place] and [place]. This disclosure is being madepursuant to the Care Everywhere program and may not contain all information available regarding this patient. Last updated 17.[facility] [employer] Allergies Active Allergy Reactions Criticality Noted Date Comments Codeine 05/03/2017 Medications * Be aware that medications may not be up to date on this document. Alwaysverify current medications with the patient. No known medications Social History Tobacco Use Types Packs/Day Years Used Date Smoking Tobacco: Every Day Smokeless Tobacco: Current Sex and Gender Information Value Date Recorded Sex Assigned at Not on file Legal Sex Male 5:33 AM JOB PLACEMENT OFFICER Gender Identity Not on file Sexual Orientation Not on file Last Filed Vital Signs Vital Sign Reading Time Taken Comments Blood Pressure 110/70 05/03/2017 12:36 PM JOB PLACEMENT OFFICER Pulse 99 05/03/2017 12:36 PM JOB PLACEMENT OFFICER Temperature 37 C (98.6 F) 05/03/2017 12:36 PM JOB PLACEMENT OFFICER Respiratory Rate 16 05/03/2017 12:36 PM JOB PLACEMENT OFFICER Oxygen Saturation 96% 05/03/2017 12:36 PM JOB PLACEMENT OFFICER Inhaled Oxygen Concentration - - Weight 106.1 kg (234 lb) 05/03/2017 12:36 PM JOB PLACEMENT OFFICER Height 175.3 cm (5' 9) 05/03/2017 12:36 PM JOB PLACEMENT OFFICER Body Mass Index 34.56 05/03/2017 12:36 PM JOB PLACEMENT OFFICER Plan of Treatment Health Maintenance Due Date Last Done Comments HIV SCREENING 06/08/2002 HEPATITIS C SCREENING 06/04/2005 DTAP/TDAP/TD VACCINES (1 - Tdap) 06/08/2006 HEPATITIS B VACCINE (1 of 3 - 19+ 3-dose series) 06/08/2006 HPV VACCINE (1 - 3-dose SCDM series) 06/08/2014 DEPRESSION SCREENING 04/03/2024 COVID-19 VACCINE (1 - 2024-2 6 season) 2024 INFLUENZA VACCINE (#1) 2024 ZOSTER VACCINE (1 of 2) 06/08/2037 HIB VACCINE Aged Out No longer eligi ble based on patient's age to complete this topic MENINGOCOCCAL (Group B) VACC INE SHARED DECISION-MAKING Aged Out No longer eligibl e based on patient's age to complete this topic MENINGOCOCCAL GROUPS A/C/Y/W VACCINE Aged Out No longer eligible b ased on patient's age to complete this topic PNEUMOCOCCAL VACCINE Aged Out No long er eligible based on patient's age to complete this topic Insurance MEDICAID - OUT OF STATE
--- OUTSIDE RECORDS SUMMARY | 2025-03-20 11:41 | XMS_ITS | Patient Health Record ---
Author Organization [facility] Address [address] [place] [address] Phone [phone] Care Team Providers Care Raw Stock Dyeing Machine Tender Name Role Phone Darshan Lujan APRN Primary Care Provider [facility] Unav ailable Unavailable Allergies Allergen (clinical drug ingredient) Drug/Non Drug Allergy documented on EMR Reaction Allergy Type Onset Date Status codeine Codeine Sulfate Unknown Drug Allergy A ctive topiramate Topamax Unknown Drug Allergy Active Results Component Value Reference Range Notes Hemoglobin A1c CLIA Waived Order date: 03/21/2024 Reviewed date:04/16/2024 10:31:53 PM Interpretation: Performing Lab: Notes/Report: Reason For Referral No Information Medications Medication SIG (Take, Route, Frequency, Duration) Notes Start Date End Date Diagnosis (ICD Code) Status hydrOXYzine HCl 25 MG Tablet 1 tablet as needed Orally up to three times daily; Duration: 15 days 03/12/2024 Anxiety (ICD_10 - F41.9) Active Albuterol Sulfate Active Nicotine Polacrilex 2 MG Lozenge as directed Mouth/Throat 03/12/2024 Nicotine dependence, unspecified, uncomplicated (ICD_10 - F17.200) Active Nicotine Step 1 21 MG/24HR Patch 24 Hour 1 patch to skin Transdermal Once a day 03/12/2024 Nicotine dependence, unspecified, uncomplicated (ICD_10 - F17.200) Active Social History Tobacco Use: Social History Observation Description Date Details (start date - stop date) Former Smoker NA - 03/11/2024 Sex Observation Social History Observation Description Sex Observation Male Sexual Orientation Social History Observation Description Sexual Orientation Straight or heterose xual Gender Identity Social History Observation Description Gender Identity Male SDOH Assessments Date Tool Assessment Assessment LOINC Value Assessment Notes Goals Interventions General Notes 024 PRAPARE (LOINC: 83206-8 ) Total Score: 1 PRAPARE Score: 1 No recent per [place] PD[place] Social History Social Determinants Social Info Question Answer Notes PRAPARE PRAPARE Score: 1 Miscellaneous Social Info Question Answer Notes Method of learning: Preferred method of learning: Reading,Discussion,Demonstra tion,Hearing,Other Primary Social History Social Info Question Answer Notes Living Arrangement Living Arrangement: Dependent Rand holman Living with: Parent(s) Is this a supportive environment? Yes Employment Status Employment Status: On Disability Illicit Substance Usage Illicit Substance Usage: No Alcohol Use Alcohol Use Frequency: Never Tobacco Use: Social Info Question Answer Notes Tobacco Control (Standard) Tobacco use: Former smoker When did you stop smoking? 03/11/2024 Additional Details Category Social Info Options Details Past Medication Use Do you use nicotine other than cig arettes? 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) Added On: 7 Active confirmed Problem Tobacco dependence (16494481) Tobacco dependence (F17.200) Added On: 2 Active confirmed Problem Depression (413443132) Depression (F32.9) Added On: 1 Active confirmed Problem Mood disorder (80847823) Mood disorder (F39) Added On: 1 Active confirmed Problem Posttraumatic stress disorder (85909907) PTSD (post-traumatic stress disorder) (F43.10) Added On: 6 Active confirmed Problem Anxiety (57225551) Anxiety (F41.9) Added On: 7 Active confirmed Problem Bipolar 1 disorder (982090099) Bipolar 1 disorder (F31.9) Added On: 0 Onset Date: 2019 Active confirmed Problem Hypertriglyceridemia (251333130) Hypertriglyceridemia (E78.1) Added On: 9 Active confirmed Problem Tobacco user (185409199) Cigarette nicotine dependence without complication (F17.210) Added On: 1 Active confirmed Problem Nicotine dependence (47400809) Nicotine dependence (F17.200) Added On: 9 Active confirmed Problem Obesity (504267805) Obesity (BMI 30-39.9) (E66.9) Added On: 8 Active confirmed Problem Essential hypertension (50145865) Essential hypertension (I10) Added On: 9 Onset Date: 2021 Active confirmed Problem Erectile dysfunction (disorder) (827671426) Erectile dysfunction, unspecified erectile dysfunction type (N52.9) Added On: 7 Active confirmed Problem Sleep apnea (07846997) Sleep apnea, unspecified type (G47.30) Added On: 0 Active confirmed Problem Tobacco user (326444780) Chewing tobacco nicotine dependence without complication (F17.220) Added On: 7 Active confirmed Problem Body mass index 30.0 0 to 34.99 (638986861116887) Body mass index (BMI) of 34.0-34.9 in adult (Z68.34) Added On: 2 Active confirmed Problem 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) Added On: 8 Active confirmed Problem Obese class II (945203819140142) Body mass index [BMI] 35.0-35.9, adult (Z68.35) Added On: 2 Active confirmed Problem Obese class II (425849032727274) BMI 37.0-37.9, adult (Z68.37) Added On: 2 Active confirmed Vital Signs Vital Sign Value Notes Appt Date Heart Rate 104 /min 03/21/2024 Respiratory Rate 16 /min 03/21/2024 Blood pressure diastolic 92 mm Hg Oximetry 98 % 03/21/2024 Height 70 in 03/21/2024 Blood pressure systolic 156 mm Hg 03/03 Weight 236 lbs 03/21/2024 BMI 33.86 kg/m2 03/21/2024 Encounters Date Time Type Facility Location Provider Diagnosis 4 09:40 AM Office Visit, Est Pt., Level 3 ([address]) [address] [place] [address] Darshan Lujan Obesity (BMI 30-39.9) E66.9 ; Nicotine dependence, unspecified, uncomplicated F17.200 and Nutritional counseling Z71.3 Assessments Encounter Date Diagnosis (ICD Code) Assessment Notes Treat ment Notes Section Notes 03/21/2024 Nicotine dependence, unspecified, uncomplicated (ICD-10 - F17.200) 03/21/2024 Obesity (BMI 30-39.9 ) (ICD-10 - E66.9) 03/21/2024 Nutritional counseli ng (ICD-10 - Z71.3) Plan Of Treatment No Information Insurance Providers Payer Name Payer Address Payer Phone Subscriber Number Group Number Insured Name Patient Relationship to Insured Coverage Start Date Coverage End Date MEDICARE PART A [address] [place] [address] [id number] Ke Turner Self - patient is the insured 1 MEDICAID [address] [place] [address] [id number] Ke Turner Self - patient is the insured 3 Medications Administered Medication Instructions Date of Administration Dosage Diagnosis (ICD Code) Notes Abilify Maintena 08/16/2023 400 mg Pa tient tolerated well Abilify Maintena 09/20/2023 400 mg Pa tient tolerated Medical (General) History Medical History History ICD Code obesity rotator cuff injury rt anxiety PTSD depression tobacco cessation Surgical History Surgery Date(Month/Year) Amblyopia repair Shoulder 03/25 Hospitalization History Reason Date(Month/Year) [facility]
--- OUTSIDE RECORDS SUMMARY | 2025-03-20 11:41 | XMS_ITS | Clinical Summary ---
Author Organization Formerly [facility] Address [address] [place] [address] Phone Care Team Providers Care Copy Room Technician Name Role Phone [facility], External Provider Primary Care Provider U navailable Allergies Active Allergy Reactions Criticality Noted Date Comments Codeine Swelling Low 04/27/2018 Medications FLUoxetine (PROzac) 40 mg capsuleIndicati ons:depression Take 1 Capsule (40 mg) by mouth daily. 30 Capsule 1 Active gabapentin (NEURONTIN) 300 mg capsuleIndicati ons:mood Take 1 Capsule (300 mg) by mouth 3 times daily. 90 Capsule 1 Active prazosin (MINIPRESS) 2 mg capsuleIndicati ons:nightmares Take 1 Capsule (2 mg) by mouth daily at bedtime. 30 Capsule 1 Active QUEtiapine (SEROquel) 300 mg tabletIndicatio ns:bipolar Take 1 Tablet (300 mg) by mouth daily at bedtime. 30 Tablet 1 Active gemfibroziL (LOPID) 600 mg tablet Take 1 Tablet (600 mg) by mouth 2 times daily before meals. 60 Tablet 1 Active nicotine (NICODERM CQ) 21 mg/24 hr patchIndication s:nicotine dependence,crav ings Apply 1 Patch to skin as directed daily. 30 Patch 1 Active ergocalciferol (VITAMIN D2) 50,000 unit capsuleIndicati ons:vitamin D deficiency Take 50,000 Units by mouth every 7 days. Active buPROPion HCL (WELLBUTRIN SR) 150 mg Sustained Release 12 hour tabletIndicatio ns:depression Take 1 Tablet (150 mg) by mouth daily at bedtime. 30 Tablet 1 Active albuterol sulfate HFA 90 mcg/actuation aerosol inhaler Take 2 Puffs by inhalation every 6 hours as needed for Wheezing or Shortness of Breath. 8.5 Gram 4 Active Active Problems Problem Noted Date Diagnosed Date Dyslipidemia 11/08/2020 Obstructive sleep apnea 08/23/2020 Obesity (BMI 30-39.9) 08/23/2020 Suicidal ideation 12/24/2019 Severe episode of recurrent major depressive disorder, without psychotic features 12/24/2019 Routine general medical exam ination at a health care facility 11/22/2019 Bipolar I disorder, most rec ent episode depressed, severe without psychotic features 09/27/2019 Tobacco use 05/09/2019 Vitamin D deficiency 05/09/2019 Mixed hyperlipidemia 04/02/2019 PTSD (post-traumatic stress disorder) 05/01/2018 Bipolar disorder, current episode depressed, mod erate 04/28/2018 Resolved Problems Problem Noted Date Diagnosed Date Resolved Date COVID-19 04/16/2020 08/23/2020 Tobacco abuse 05/09/2019 08/23/2020 Hx of sinus tachycardia 04/02/201908/02 Elevated BP without diagnosis of hypertension 04/02/20 19 08/23/2020 Bipolar 1 disorder, depressed, severe 03/15/2019 05/09/2019 Routine general medical exam ination at health care facility 08/23/2020 Moderate episode of recurren t major depressive disorder 05/01/2018 Hypertension 08/23/2020 Encounters Date Type Department Care Team Description 02/25/2025 External Device Data [facility] Provider, Abstract 02/25/2025 External Device Data [facility] Provider, Abstract 02/25/2025 External Device Data [facility] Provider, Abstract 02/18/2025 External Device Data [facility] Provider, Abstract 01/28/2025 External Device Data [facility] Provider, Abstract 01/22/2025 External Device Data [facility] Provider, Abstract 01/07/2025 External Device Data [facility] Provider, Abstract 01/07/2025 External Device Data [facility] Provider, Abstract from Last 3 Months Immunizations Immunization Administration Dates Next Due Influenza Seasonal Unspecified Formulation IM Family History Medical History Relation Name Comments Diabetes Brother Heart Disease Father Heart Disease Maternal Grandfather Heart Disease Mother Relation Name Status Comments Brother Father Maternal Grandfather Mother Social History Tobacco Use Types Packs/Day Years Used Date Smoking Tobacco: Every Day Cigarettes 0.5 22 Started: 2003 Smokeless Tobacco: Current Alcohol Use Standard Drinks/Week Comments No 0 (1 standard drink = 0.6 oz pur e alcohol) Feeling Safe Answer Date Recorded Within the last year, have y ou been afraid of your partner or ex-partner? No 08/22/2020 Within the last year, have y ou been humiliated or emotionally abused in other ways by your partner or ex-partner? No Within the last year, have y ou been kicked, hit, slapped, or otherwise physically hurt by your partner or ex-partner? No 08/22/2020 Within the last year, have y ou been raped or forced to have any kind of sexual activity by your partner or ex-partner? No 08/22/2020 Social Connections Answer Date Recorded In a typical week, how many times do you talk on the telephone with family, friends, or neighbors? More than three times a week 11/07/2020 How often do you get togethe r with friends or relatives? More than three times a week 11/07/2020 How often do you attend chur ch or hindu services? Never 11/07/2020 Do you belong to any clubs o r organizations such as sikh groups, unions, fraternal or athletic groups, or school groups? No 11/07/2020 How often do you attend meet ings of the clubs or organizations you belong to? Never 11/07/2020 Are you , , di vorced, , never , or living with a partner? 11/07/2020 Financial Resource Strain Answer Date R ecorded How hard is it for you to pa y for the very basics like food, housing, medical care, and heating? Not hard at all 08/22/2020 Food Insecurity Answer Date Recorded In the past 12 months, have you worried that your food would run out before you had money to buy more? Never true 08/22/2020 In the past 12 months, did y ou run out of food and didn't have money to buy more? Never true 08/22/2020 Transportation Needs Answer Date Record ed In the past 12 months, has l ack of transportation kept you from medical appointments or from getting medications? No 08/02 In the past 12 months, has l ack of transportation kept you from meetings, work, or from getting things needed for daily living? No 08/22/2020 Housing Stability Answer Date Recorded In the last 12 months, was t here a time when you were not able to pay the mortgage or rent on time? No 08/22/2020 Number of Times Moved in the Last Year Not on fi le 08/22/2020 At any time in the past 12 m [facility], were you homeless or living in a usp (including now)? No 08/22/2020 Feeling Safe Answer Date Recorded Are you in a relationship wi th someone who hurts you emotionally and/or physically? No 03/10/2024 Sex and Gender Information Value Date Recorded Sex Assigned at Not on file Legal Sex Male 6:44 PM SCIENTIFIC PROGRAMMER Gender Identity Not on file Sexual Orientation Not on file Last Filed Vital Signs Vital Sign Reading Time Taken Comments Blood Pressure 141/86 03/10/2024 6:53 AM SCIENTIFIC PROGRAMMER Pulse 100 10/01/2023 5:00 PM CDT Temperature 37 C (98.6 F) 03/10/2024 6:53 AM SCIENTIFIC PROGRAMMER Respiratory Rate 15 03/10/2024 6:53 AM SCIENTIFIC PROGRAMMER Oxygen Saturation 96% 03/10/2024 6:53 AM SCIENTIFIC PROGRAMMER Inhaled Oxygen Concentration - - Weight 62.6 kg (138 lb) 03/10/2024 6:53 AM SCIENTIFIC PROGRAMMER Height 175.3 cm (5' 9) 03/10/2024 6:53 AM SCIENTIFIC PROGRAMMER Body Mass Index 20.38 03/10/2024 6:53 AM SCIENTIFIC PROGRAMMER Plan of Treatment Health Maintenance Due Date Last Done Comments DTAP/TDAP/TD VACCINES (1 - Tdap) 06/08/2006 HEPATITIS B VACCINES (1 of 3 - 19+ 3-dose series) 11/2006 INFLUENZA VACCINE (#1) 2024 01/15/2019 Abdominal Aortic Aneurysm (AAA) Screening Completed 04/23/2015 HPV VACCINES (No Doses Required) Completed Insurance [place] MEDICARE PART A AND B MED[place] Advance Directives For more information, please contact: [phone] * Full Code (Latest Code Status on File) Date Activated Date Inactivated Comments 11/07/2020 8:27 AM 11/12/2020 3:23 PM * Full Code Date Activated Date Inactivated Comments 08/23/2020 4:17 PM 08/28/2020 4:09 PM * Full Code Date Activated Date Inactivated Comments 08/23/2020 8:36 AM 08/23/2020 4:17 PM * Full Code Date Activated Date Inactivated Comments 04/11/2020 12:53 AM 04/16/2020 5:27 PM * Full Code Date Activated Date Inactivated Comments 12/24/2019 4:48 AM 12/26/2019 5:09 PM Care Teams Copy Room Technician Relationship Specialty Start Date End Date [facility], External [place] [address] [place] [address] PCP - General 08/22/20
--- OUTSIDE RECORDS SUMMARY | 2025-03-20 11:41 | XMS_ITS | Clinical Summary ---
Author Organization [facility] Address [address] [place] [address] Care Team Providers Care Kettle Chipper Name Role Phone Darshan Lujan NP Primary Care Provider [phone] Allergies Active Allergy Reactions Criticality Noted Date Comments Codeine Swelling,Other (See comments) High 03/25/2015 Swelling Reaction: Other Topiramate Nausea & Vomiting Low 11/16/2022 Medications gabapentin (NEURONTIN) 600 mg tablet Take 1 tablet (600 mg total) by mouth 3 (three) times a day Active prazosin (MINIPRESS) 2 mg capsule TAKE 1 CAPSULE BY MOUTH EVERYDAY AT BEDTIME Active FLUoxetine (PROzac) 20 mg capsule 3 Active docusate sodium (COLACE) 100 mg capsuleIndicati ons:constipatio n Take 1 capsule (100 mg total) by mouth 2 (two) times a day as needed for constipation (while taking narcotics) 30 capsule 1 3 Active oxyCODONE (ROXICODONE) 5 mg immediate release tabletIndicatio ns:Pain 1-2 tablets q4-6 hours PRN pain 40 tablet 3 Active Active Problems Problem Noted Date Diagnosed Date Arthritis of right acromioclavicular joint 03/15 Obesity (BMI 30-39.9) 08/23/2020 Obstructive sleep apnea 08/23/2020 Severe episode of recurrent major depressive disorder, without psychotic features 12/24/2019 Suicidal ideations 12/24/2019 General medical exam 11/22/2019 Bipolar I disorder, most rec ent episode depressed, severe without psychotic features 09/27/2019 Tobacco use 05/09/2019 Mixed hyperlipidemia 04/02/2019 PTSD (post-traumatic stress disorder) 05/01/2018 Bipolar disorder, current episode depressed, mod erate 04/28/2018 Attention deficit hyperactivity disorder (ADHD) 06/17/2015 Vitamin D deficiency 04/19/2015 Anger 04/07/2015 Anxiety 04/07/2015 Dyslipidemia 04/07/2015 Erectile dysfunction 04/07/2015 Surgical History Surgery Date Site/Laterality Comments CHOLECYSTECTOMY 04/03/2016 - 04/02/2017 STRABISMUS SURGERY as a child COLONOSCOPY 04/03/2018 - 04/02/2019 TONSILLECTOMY 04/03/2005 - 04/02/2006 Right Medical History Medical History Date Comments Anxiety Depression PTSD (post-traumatic stress disorder) Low vitamin D level Sleep apnea Family History Medical History Relation Name Comments Heart attack Father Heart disease Father Cancer Half-Brother Heart attack Mother Heart disease Mother Anesthesia problems Neg Hx Relation Name Status Comments Father Half-Brother Other diabeties Mother Social History Tobacco Use Types Packs/Day Years Used Date Smoking Tobacco: Former Cigarettes 0.5 10 1 05/10/2012 - 03/09/2023 Smokeless Tobacco: Former AUDIT-C Answer Date Recorded Q1: How often do you have a drink containing alc ohol? 2-4 times a month 03/21/2023 Q2: How many drinks containi ng alcohol do you have on a typical day when you are drinking? 1 or 2 03/21/2023 Q3: How often do you have si x or more drinks on one occasion? Never 03/21/2023 Personal Safety Answer Date Recorded Have you ever been in or are you currently in a harmful physical or emotional relationship or is someone making you feel afraid or unsafe? Denies 03/21/2023 Sex and Gender Information Value Date Recorded Sex Assigned at Not on file Legal Sex Male 1:44 AM ACCOUNTANT CLERK Gender Identity Not on file Sexual Orientation Not on file Last Filed Vital Signs Vital Sign Reading Time Taken Comments Blood Pressure 118/61 03/21/2023 3:10 PM ACCOUNTANT CLERK Pulse 106 03/21/2023 3:10 PM ACCOUNTANT CLERK Temperature 36.7 C (98.1 F) 03/21/2023 3:10 PM ACCOUNTANT CLERK Respiratory Rate 20 03/21/2023 3:10 PM ACCOUNTANT CLERK Oxygen Saturation 93% 03/21/2023 3:10 PM ACCOUNTANT CLERK Inhaled Oxygen Concentration - - Weight 106 kg (233 lb 9.6 oz) 03/21/2023 9:36 AM ACCOUNTANT CLERK Height 175.3 cm (5' 9) 03/21/2023 9:36 AM ACCOUNTANT CLERK Body Mass Index 34.5 03/21/2023 9:36 AM ACCOUNTANT CLERK Plan of Treatment Health Maintenance Due Date Last Done Comments Depression Screening 1987 Hepatitis C Screening 1987 Varicella Vaccines (1 of 2 - 13+ 2-dose series) 06/08/2000 Regular Well Visit/Exam 18-64 06/08/2005 HPV Vaccines (1 - 3-dose SCD M series) 06/08/2014 Covid-19 Vaccine ( - 2024-2 6 season) 2024 07/28/2020, 07/07/2020 Influenza Vaccine (#1) 2024 01/15/2019 DTaP/Tdap/Td Vaccine (2 - Td or Tdap) 12/14/2028 12/14/2018 Hepatitis B Screening Completed 09/23/2020 Pneumococcal vaccine <65 Aged Out No longer eligible based on patient's age to complete this topic Insurance MEDICARE [facility] MEDICARE [place] Care Teams Kettle Chipper Relationship Specialty Start Date End Date Darshan Lujan NP [address] [place] [address] PCP - General Pain Management 08/09/22
[2025-03-20 12:25] VITALS: BP 121/80; PULSE 79; RESP 18; O2SAT 97
== END 2025-03-20 12:26 | disposition home or self-care (01) ==
LOC: ANHED 12:02
PROVIDERS: Emergency Provider Physician Assistant; PCP Nurse Practitioner
DX: S93.401A Sprain of unspecified ligament of right ankle, initial encounter (principal); W17.89XA Other fall from one level to another, initial encounter; E78.00 Pure hypercholesterolemia, unspecified; F17.210 Nicotine dependence, cigarettes, uncomplicated
CPT/HCPCS: 73590; 73610; 73630; 99284; A9270